=== PATIENT | male | born 1990 | race Two or more races ===

== ENCOUNTER 2019-05-07 18:09 | Inpatient (IN) | payer MEDICAID, OTHER ==
[~2019-05-07] VITALS: Ht 172.7 cm; Wt 81.6 kg
[2019-05-07] MEDS: POTASSIUM CHLORIDE 50 ML IV SCH (01:05)
[2019-05-07] MEDS ORDERED: DEXTROSE 50% 50 ML DISP.SYRIN ONE (18:25)
[2019-05-07 18:29] LABS: BASOPHILS # (AUTO) 0.1 K/uL (0.0-8.0); BASOPHILS % (AUTO) 0.4 % (0.0-2.0); EOSINOPHILS # (AUTO) 0.1 K/uL (0.0-0.7); EOSINOPHILS % (AUTO) 0.2 % (0.0-7.0); HEMATOCRIT 41.5 % (36.7-47.1); HEMOGLOBIN 13.8 g/dL (12.5-16.3); LYMPHOCYTES # (AUTO) 3.1 K/uL (20.0-40.0); LYMPHOCYTES % (AUTO) 10.7 % (20.5-51.5); MEAN CORPUSCULAR HGB CONC 33 g/dL (32.5-36.3); MEAN CORPUSCULAR VOLUME 89.7 fL (73.0-96.2); MONOCYTES # (AUTO) 2.1 K/uL (2.0-10.0); MONOCYTES % (AUTO) 7.4 % (0.0-11.0); NEUTROPHILS # (AUTO) 23.5 K/uL (1.8-8.9); NEUTROPHILS % (AUTO) 81.3 % (38.5-71.5); PLATELET COUNT (AUTO) 255 K/uL (152-348); RED BLOOD CELL COUNT(AUTO) 4.62 MIL/uL (4.06-5.63)
[2019-05-07] MEDS ORDERED: DEXTROSE 50% 50 ML DISP.SYRIN IV ONE (18:30)
[2019-05-07] MEDS ORDERED: OLANZAPINE 10 MG VIAL IM ONE ×2 (18:30)
[2019-05-07] MEDS ORDERED: IV NORMAL SALINE 1000 ML BAG IV ONE ×2 (18:30→19:30)
[2019-05-07 18:38] LABS: WHITE BLOOD COUNT (AUTO) 28.9 K/uL (3.6-10.2)
[2019-05-07 18:42] LABS: ETHANOL 16 MG/DL (0-0)
[2019-05-07] MEDS ORDERED: KETAMINE HCL 500 MG/10 ML INJ ONE (18:43)
[2019-05-07] MEDS ORDERED: KETAMINE HCL 500 MG/10 ML INJ IV ONE (18:45)
[2019-05-07 18:47] LABS: ALANINE AMINOTRANSFERASE 37 U/L (16-63); ALKALINE PHOSPHATASE 87 U/L (50-136); ASPARTATE AMINOTRANSFERASE 58 U/L (15-37); BILIRUBIN,DIRECT 0.2 mg/dL (0.0-0.2); BILIRUBIN,TOTAL 0.7 mg/dL (0.2-1.0); CARBON DIOXIDE 18 mmol/L (21-32); CHLORIDE 103 mmol/L (98-107); CREATININE 1.2 mg/dL (0.6-1.3); POTASSIUM 3.2 mmol/L (3.5-5.1); TOTAL PROTEIN, SERUM 7.8 g/dL (6.4-8.2); UREA NITROGEN, BLOOD 17 mg/dL (7-18)
[2019-05-07 18:48] LABS: ACETAMINOPHEN < 2.0 ug/mL (10-30); GLUCOSE 44 mg/dL (74-106)
[2019-05-07] MEDS ORDERED: LORAZEPAM 2 MG/1 ML VIAL ONE ×2 (18:55→20:17)
[2019-05-07] MEDS ORDERED: LORAZEPAM 2 MG/1 ML VIAL IV ONE ×2 (19:00→20:30)
[2019-05-07] MEDS ORDERED: IV D5/ 0.9% NACL 1,000 ML IV ONE (19:01)
[2019-05-07 19:11] LABS: THYROID STIMULATING HORMONE 3.406 mIU/mL (0.358-3.740)
[2019-05-07] MEDS ORDERED: TDAP DIPH,PERTUSS,TET VAC/PF 0.5 ML DISP.SYRIN IM ONE ×2 (19:13→19:15)
[2019-05-07 19:24] LABS: *BILIRUBIN,URIN 1+ (NEGATIVE); *BLOOD, URINE NEGATIVE (NEGATIVE); *CLARITY,URINE CLEAR (CLEAR); *COLOR,URINE YELLOW (YELLOW); *KETONES,URINE 2+ (NEGATIVE); LEUKOCYTE ESTERASE ,URINE NEGATIVE (NEGATIVE); NITRITE, URINE NEGATIVE (NEGATIVE); UGLUCOSE NEGATIVE (NEGATIVE)
[2019-05-07 19:31] LABS: *AMPHETAMINE, URINE POSITIVE (NEGATIVE); *BARBITURATE, URINE NEGATIVE (NEGATIVE); *CANNABINOID, URINE NEGATIVE (NEGATIVE); *COCCAINE, URINE NEGATIVE (NEGATIVE); *OPIATE, URINE NEGATIVE (NEGATIVE); *PHENCYCLIDINE SCREEN,URINE NEGATIVE (NEGATIVE)
[2019-05-07 19:38] LABS: COARSE GRANULAR CASTS,URINE 0-3 /LPF; MUCUS,URINE MANY /LPF (0-FEW)
[2019-05-07] MEDS ORDERED: MEROPENEM 1,000 MG in IV NORMAL SALINE 250 ML IV ONE (20:00)
[2019-05-07] MEDS ORDERED: VANCOMYCIN IV 1,000 MG in IV DEXTROSE 5% 250 ML IV ONE (20:00)
[2019-05-07] MEDS ORDERED: MEROPENEM 1 G VIAL IV ONE (21:02)
[2019-05-07 21:10] LABS: CSF GLUCOSE 48 mg/dL (40-70); CSF PROTEIN 34 mg/dL (15-45)
--- NOTE | 2019-05-07 21:40 | NUR ---
EPIC CALLED FOR ADMISSION
--- NOTE | 2019-05-07 21:45 | NUR ---
NURIA BANSAL CALLED BACK ACCEPTED PATIENT.
--- NOTE | 2019-05-07 22:00 | NUR ---
[employer] AT BEDSIDE PATIENT NOTED NOT IN ANY DISTRESS.
[2019-05-07] MEDS ORDERED: HYDROCODONE/APAP 5-325MG TABLET PO PRN (22:15)
[2019-05-07] MEDS ORDERED: DEXTROSE 50% 50 ML DISP.SYRIN IV PRN (22:15)
[2019-05-07] MEDS ORDERED: ACETAMINOPHEN 325 MG TABLET PO PRN (22:15)
[2019-05-07] MEDS ORDERED: ONDANSETRON 4 MG/2 ML VIAL IV PRN (22:15)
[2019-05-07] MEDS ORDERED: INSULIN REGULAR, HUMAN 300 UNIT/3 ML VIAL SQ PRN (22:15)
[2019-05-07] MEDS ORDERED: LORAZEPAM 2 MG/1 ML VIAL IV PRN (22:15)
[2019-05-07] MEDS ORDERED: MAGNESIUM HYDROXIDE 30 ML LIQUID UDC PO PRN (22:15)
[2019-05-07] MEDS ORDERED: VANCOMYCIN IV 200 ML ONE (22:33)
--- NOTE | 2019-05-07 22:50 | NUR ---
MILK TANKER DRIVER STATED THAT THE PATIENT NO LONGER IN CUSTODY.
[2019-05-07] MEDS ORDERED: POTASSIUM CHLORIDE 100 ML ONE (23:55)
[2019-05-08] VITALS (7 sets, daily range): BP systolic 102–137; BP diastolic 52–76
--- NOTE | 2019-05-08 | NUR ---
remains drowsy. v/s stable.
--- NOTE | 2019-05-08 00:05 | NUR ---
CALLED FOR REPORT NURSE OLIVE NOT AVAILABLE AT THIS TIME WILL CALL BACK.
[2019-05-08] MEDS: POTASSIUM CHLORIDE 50 ML IV SCH (00:15)
--- NOTE | 2019-05-08 01:26 | NUR ---
ADMITTED FROM [place] V[place] [facility] ADMITTING DX OF ALTERED MENTAL STATUS. RESPONSE TO PAINFUL STIMULI. IVF INFUSING ON LAC, NO SIGNS OF INFILTRATION. ON RM AIR W/ O2 SAT OF 100%. REPOSITIONED W/ HOB ELEVATED. WATCHED PT CLOSELY.
[2019-05-08] MEDS: BLOOD SUGAR DIAGNOSTIC 1 EACH STRIP VI SCH ×7 (01:41→23:51)
[2019-05-08] MEDS: IV D5/ 0.9% NACL 1,000 ML IV PRN ×2 (03:10→09:17)
--- NOTE | 2019-05-08 04:00 | NUR ---
REMAINS SLEEPING. V/S STABLE.
[2019-05-08 05:05] LABS: BASOPHILS # (AUTO) 0.1 K/uL (0.0-8.0); BASOPHILS % (AUTO) 0.4 % (0.0-2.0); EOSINOPHILS # (AUTO) 0.2 K/uL (0.0-0.7); EOSINOPHILS % (AUTO) 1.1 % (0.0-7.0); HEMATOCRIT 37.8 % (36.7-47.1); HEMOGLOBIN 12.5 g/dL (12.5-16.3); LYMPHOCYTES # (AUTO) 2.2 K/uL (20.0-40.0); LYMPHOCYTES % (AUTO) 13.9 % (20.5-51.5); MEAN CORPUSCULAR HEMOGLOBIN 29.8 uug (23.8-33.4); MEAN CORPUSCULAR HGB CONC 33 g/dL (32.5-36.3); MEAN CORPUSCULAR VOLUME 89.9 fL (73.0-96.2); MONOCYTES # (AUTO) 1.5 K/uL (2.0-10.0); MONOCYTES % (AUTO) 9.4 % (0.0-11.0); NEUTROPHILS # (AUTO) 11.6 K/uL (1.8-8.9); NEUTROPHILS % (AUTO) 75.2 % (38.5-71.5); PLATELET COUNT (AUTO) 235 K/uL (152-348); WHITE BLOOD COUNT (AUTO) 15.5 K/uL (3.6-10.2)
[2019-05-08 05:17] LABS: CREATININE 0.8 mg/dL (0.6-1.3); MAGNESIUM 2.2 mg/dL (1.8-2.4); PHOSPHOROUS 3.2 mg/dL (2.5-4.9); POTASSIUM 4.1 mmol/L (3.5-5.1)
--- NOTE | 2019-05-08 06:00 | NUR ---
PT. WOKE UP ASKING FOR FOOD. SWALLOW GOOD. NOT IN ANY DISTRESS. V/S STABLE.
[2019-05-08] MEDS ORDERED: MEROPENEM 1 G in IV NORMAL SALINE 50 ML IV SCH (09:00)
--- NOTE | 2019-05-08 11:04 | NUR ---
Spoke with Dr. Hernandez on the telephone. Full report given. New orders received. MD spencer to downgrade pt to telemetry status.
[2019-05-08] MEDS ORDERED: MEROPENEM 1 G in IV NORMAL SALINE 100 ML IV SCH (15:00)
--- NOTE | 2019-05-08 16:31 | NUR ---
Full SBAR report given to MITCH Beck.
--- NOTE | 2019-05-08 16:35 | NUR ---
Pt transferred to room #308-T with RN. RAYA wright. Pt stable and nad upon leaving the unit.
--- NOTE | 2019-05-08 16:50 | NUR ---
Patient received from ICU , report received from MANAGER [employer]EIGN; patient in stable condition and vital signs with baseline mental status;patient restated on iv fluids.
--- NOTE | 2019-05-08 18:53 | NUR ---
Patient in calm condition with baseline mental status ; patient received from icu in stable condition; patient resting through out shift; iv hydration continued; Report given to oncoming nurse.
--- NOTE | 2019-05-08 19:30 | NUR ---
Received patient resting in bed, easily to arouse. No distress noted. A/Ox3. No complaints of pain or SOB noted. IVF running on the left AC, no s/s of infection or infiltration noted. Tariq catheter is intact, draining cloudy, yellow urine. Safety measures initiated. Bed is low and locked, call light within reach, bed alarm on. Will continue to monitor.
[2019-05-08] MEDS ORDERED: NYSTATIN SUSPENSION 5 ML LIQUID UDC PO SCH (22:00)
[2019-05-08] MEDS ORDERED: CEFTRIAXONE 1 G VIAL ONE (22:47)
[2019-05-08] MEDS: FLUCONAZOLE 100 MG TABLET PO SCH (23:41)
[2019-05-08] MEDS: CEFTRIAXONE 1 G in IV DEXTROSE 5% 50 ML IV SCH (23:41)
--- NOTE | 2019-05-08 23:52 | NUR ---
Was not able to administer nystatin suspension due to not having the supply available and pharmacy is closed. Changed the start date for the morning. Antibiotics was changed to Rocephin and patient started on Fluconazole. Will continue to monitor.
[2019-05-09] VITALS: BP 115/78
[2019-05-09] MEDS: IV D5/ 0.9% NACL 1,000 ML IV PRN ×2 (01:47→19:59)
[2019-05-09] MEDS: BLOOD SUGAR DIAGNOSTIC 1 EACH STRIP VI SCH ×6 (03:58→23:36)
[2019-05-09 04:00] VITALS: BP 120/56
--- NOTE | 2019-05-09 07:20 | NUR ---
RECEIVED PATIENT SLEEPING IN BED. NO ACUTE DISTRESS NOTED. CLARKE IN LOWEST POSITION, SIDE RAILS UP X2, CALL LIGHT WITHIN REACH. WILL CONTINUE TO MONITOR.
[2019-05-09] MEDS: NYSTATIN SUSPENSION 5 ML LIQUID UDC PO SCH ×4 (08:24→20:27)
[2019-05-09 11:06] VITALS: BP 101/56
[2019-05-09 15:04] VITALS: BP 118/61
[2019-05-09 17:19] LABS: BASOPHILS # (AUTO) 0.1 K/uL (0.0-8.0); BASOPHILS % (AUTO) 0.5 % (0.0-2.0); EOSINOPHILS # (AUTO) 0.3 K/uL (0.0-0.7); EOSINOPHILS % (AUTO) 3.2 % (0.0-7.0); HEMATOCRIT 38.1 % (36.7-47.1); HEMOGLOBIN 12.7 g/dL (12.5-16.3); LYMPHOCYTES # (AUTO) 3.4 K/uL (20.0-40.0); LYMPHOCYTES % (AUTO) 30.7 % (20.5-51.5); MEAN CORPUSCULAR HEMOGLOBIN 29.9 uug (23.8-33.4); MEAN CORPUSCULAR HGB CONC 33 g/dL (32.5-36.3); MEAN CORPUSCULAR VOLUME 89.8 fL (73.0-96.2); MONOCYTES # (AUTO) 1.1 K/uL (2.0-10.0); MONOCYTES % (AUTO) 9.9 % (0.0-11.0); NEUTROPHILS # (AUTO) 6.1 K/uL (1.8-8.9); NEUTROPHILS % (AUTO) 55.7 % (38.5-71.5); PLATELET COUNT (AUTO) 231 K/uL (152-348); RED BLOOD CELL COUNT(AUTO) 4.24 MIL/uL (4.06-5.63)
[2019-05-09 17:25] LABS: CREATININE 0.8 mg/dL (0.6-1.3); POTASSIUM 3.5 mmol/L (3.5-5.1)
--- NOTE | 2019-05-09 18:03 | NUR ---
Patient slept intermittently throughout day. Patient denies pain and discomfort. No acute distress noted throughout shift. Patient sloan removed. Safety measures provided. will endorse to oncoming nurse.
[2019-05-09 19:45] VITALS: BP 107/55
--- NOTE | 2019-05-09 20:00 | NUR ---
RECEIVED PATIENT ASLEEP IN BED. EASILY AROUSABLE. A/O X4. DENIES ANY PAIN OR DISCOMFORT. NO RESP. DISTRESS NOTED. VS WNL. IVF INFUSING WELL TO LEFT AC #20 GAUGE. CALL LIGHT IN REACH. ALL NEEDS ATTENDED. WILL CONTINUE TO MONITOR AND ASSESS.
[2019-05-09] MEDS: FLUCONAZOLE 100 MG TABLET PO SCH (21:34)
[2019-05-09] MEDS: CEFTRIAXONE 1 G in IV DEXTROSE 5% 50 ML IV SCH (21:41)
[2019-05-10] MEDS: BLOOD SUGAR DIAGNOSTIC 1 EACH STRIP VI SCH ×3 (04:12→12:00)
[2019-05-10 05:05] VITALS: BP 120/64
[2019-05-10] MEDS: IV D5/ 0.9% NACL 1,000 ML IV PRN (05:48)
--- NOTE | 2019-05-10 07:57 | NUR ---
RECEIVED PATIENT ASLEEP IN BED. NO ACUTE DISTRESS NOTED AT THIS TIME. BED IN LOWEST POSITION, SIDE RAILS UP X2, CALL LIGHT WITHIN REACH. WILL CONTINUE TO MONITOR.
[2019-05-10] MEDS: NYSTATIN SUSPENSION 5 ML LIQUID UDC PO SCH ×2 (09:38→13:00)
[2019-05-10] MEDS ORDERED: NYST5ORA PO (10:42)
[2019-05-10 12:05] VITALS: BP 119/65
--- NOTE | 2019-05-10 13:42 | NUR ---
PATIENT DISCHARGED TO HOME. REVIEWED D/C INSTRUCTIONS WITH PATIENT. PATIENT VERBALLY UNDERSTANDS INSTRUCTIONS. REMOVED IV WITHOUT COMPLICATIONS. PATIENT ESCORTED DOWN STAIRS WITHOUT COMPLICATIONS.
== END 2019-05-10 13:45 | disposition home or self-care (01) | DRG 424 ==
LOC: ER 18:10 → CCU 23:57 → TELE3 05-08 16:45 → MEDSURG3 05-09 16:24
PROVIDERS: ADMIT Nurse Practitioner Acute Care; ATTEND Nurse Practitioner Acute Care
PROC: 009U3ZX Drainage of Spinal Canal, Percutaneous Approach, Diagnostic (ICD-10-PCS; principal; 2019-05-07)
DX: E16.2 Hypoglycemia, unspecified (principal); G93.41 Metabolic encephalopathy; B37.0 Candidal stomatitis; E87.2 Acidosis; M62.82 Rhabdomyolysis; S00.83XA Contusion of other part of head, initial encounter; Y08.02XA Assault by strike by baseball bat, initial encounter; Y93.89 Activity, other specified; Y92.89 Other specified places as the place of occurrence of the external cause; F15.10 Other stimulant abuse, uncomplicated; F10.10 Alcohol abuse, uncomplicated; Y90.0 Blood alcohol level of less than 20 mg/100 ml
CPT/HCPCS: 36415; 70030-TC; 70450; 70486; 71045; 72125; 80307; 83605; 83735; 84100; 84157; 84443; 85025; 87040; 87205; 89051; 90715; 93005; A4663; G0378; G0480; G0480-TC; J0696; J1815; J2060; J2185; J2358; J3370; J3480; J3490; J7030; J7040; J7042; J7050; J7060